=== PATIENT | female | born 1940 ===

== ENCOUNTER 2021-08-07 00:14 | Emergency (ER) | payer OTHER ==
[~2021-08-07] VITALS: Ht 157.5 cm; Wt 79.8 kg
[~2021-08-07 00:14] MED LIST: AMLODIPINE BESI25 GM; AMLODIPINE BESYL5 MG; CLONAZEPAM2 MG; DICLOFENAC SODI50 MG PO; HYDROCHLOROTHIA25 MG; ORPH100T PO; TIROSINT50 MCG; TRAMADOL HCL7.5 GM; ZESTRIL40 M1
[2021-08-07] MEDS ORDERED: ANASTROZOLE1 MG (00:38)
[2021-08-07] MEDS ORDERED: CITALOPRAM 10 MG (00:40)
[2021-08-07] MEDS ORDERED: ADULT ASPIRIN81 MG (00:40)
[2021-08-07] MEDS ORDERED: VITAMINA B-12 (00:42)
[2021-08-07] MEDS ORDERED: VITAMINA D (00:42)
[2021-08-07] MEDS ORDERED: INTESTINEX680 M1 PO (06:35)
[2021-08-07] MEDS ORDERED: LEVSIN/SL0.125 MG SL (06:35)
== END 2021-08-07 06:53 | disposition home or self-care (01) ==
LOC: ER 00:14
DX: K62.5 Hemorrhage of anus and rectum (principal)